=== PATIENT | female | born 1970 | race Two or more races ===

== ENCOUNTER 2020-04-16 12:04 | Outpatient (CLI) | payer OTHER ==
[~2020-04-16 12:04] MED LIST: KETO10TA2 PO; MILLIPRED DP5 M1 PO
[2020-05-07] MEDS ORDERED: ENALAPRIL MALEA20 MG PO (15:37)
[2020-05-07] MEDS ORDERED: ACTOS30 MG PO (15:37)
[2020-05-07] MEDS ORDERED: METFORMIN HCL750 MG PO (15:37)
[2020-05-07] MEDS ORDERED: TOPROL XL50 M1 PO (15:38)
[2020-05-07] MEDS ORDERED: LANTUS SOL100 UNIT/1 (15:38)
[2020-05-07] MEDS ORDERED: NORVASC2.5 M1 PO (15:38)
[2020-05-07] MEDS ORDERED: MULTI VITAMIN1 EACH PO (15:39)
== END 2020-04-16 13:00 | disposition home or self-care (01) ==
LOC: OFIC 805 12:04
PROVIDERS: ATTEND Otolaryngology
DX: H74.8X1 Other specified disorders of right middle ear and mastoid (principal); H90.12 Conductive hearing loss, unilateral, left ear, with unrestricted hearing on the contralateral side; H61.23 Impacted cerumen, bilateral; R09.81 Nasal congestion

== ENCOUNTER 2020-04-27 16:48 | Outpatient (CLI) | payer OTHER ==
[2020-05-07] MEDS ORDERED: ACTOS30 MG PO (15:37)
[2020-05-07] MEDS ORDERED: METFORMIN HCL750 MG PO (15:37)
[2020-05-07] MEDS ORDERED: ENALAPRIL MALEA20 MG PO (15:37)
[2020-05-07] MEDS ORDERED: LANTUS SOL100 UNIT/1 (15:38)
[2020-05-07] MEDS ORDERED: TOPROL XL50 M1 PO (15:38)
[2020-05-07] MEDS ORDERED: NORVASC2.5 M1 PO (15:38)
[2020-05-07] MEDS ORDERED: MULTI VITAMIN1 EACH PO (15:39)
== END 2020-04-27 17:00 | disposition home or self-care (01) ==
LOC: OFIC 805 16:48
PROVIDERS: ATTEND Otolaryngology
DX: R09.81 Nasal congestion (principal); H90.12 Conductive hearing loss, unilateral, left ear, with unrestricted hearing on the contralateral side; H74.8X2 Other specified disorders of left middle ear and mastoid

== ENCOUNTER 2020-05-11 05:28 | Day surgery (SDC) | payer OTHER ==
[~2020-05-11 05:28] MED LIST changes: +ACTOS30 MG PO; +ENALAPRIL MALEA20 MG PO; +LANTUS SOL100 UNIT/1; +METFORMIN HCL750 MG PO; +MULTI VITAMIN1 EACH PO; +NORVASC2.5 M1 PO; +TOPROL XL50 M1 PO
== END 2020-05-11 12:35 | disposition home or self-care (01) ==
LOC: CIR.AMB 05:28 → ADM 08:30 → CIR.AMB 12:35
PROVIDERS: ATTEND Otolaryngology
DX: H93.8X2 Other specified disorders of left ear (principal)

== ENCOUNTER 2020-05-19 10:30 | Outpatient (CLI) | payer OTHER | END 2020-05-19 17:10 | disposition home or self-care (01) | LOC: OFIC 805 10:30 | PROVIDERS: ATTEND Otolaryngology | DX: H90.12 Conductive hearing loss, unilateral, left ear, with unrestricted hearing on the contralateral side (principal); R09.81 Nasal congestion; H61.23 Impacted cerumen, bilateral ==

== ENCOUNTER → 2020-08-25 | Outpatient (CLI) | payer OTHER | END | disposition home or self-care (01) | LOC: OFIC 805 09:15 | PROVIDERS: ATTEND Otolaryngology | DX: H74.8X3 Other specified disorders of middle ear and mastoid, bilateral (principal); H90.12 Conductive hearing loss, unilateral, left ear, with unrestricted hearing on the contralateral side; H90.3 Sensorineural hearing loss, bilateral; R09.81 Nasal congestion ==